=== PATIENT | male | born 1960 | race Two or more races ===

== ENCOUNTER 2022-03-30 08:43 | Day surgery (SDC) | payer OTHER ==
[~2022-03-30] VITALS: Ht 165.1 cm; Wt 88.5 kg
[2022-03-30] MEDS ORDERED: MIDAZOLAM 2 MG/2 ML VIAL ONE (09:43)
[2022-03-30] MEDS ORDERED: LIDOCAINE 2% 100 MG/5 ML UJET TP ONE (09:43)
[2022-03-30] MEDS ORDERED: diphenhydrAMINE 50 MG/ML VIAL ONE (09:43)
[2022-03-30] MEDS ORDERED: fentaNYL citrate 0.05 MG/ML VIAL ONE (09:43)
[2022-03-30] MEDS ORDERED: diphenhydrAMINE 50 MG/ML VIAL IVP ONE (10:50)
[2022-03-30] MEDS ORDERED: MIDAZOLAM 2 MG/2 ML VIAL IVP ONE (10:50)
[2022-03-30] MEDS ORDERED: fentaNYL citrate 0.05 MG/ML VIAL IVP ONE (10:50)
== END 2022-03-30 11:33 | disposition home or self-care (01) ==
LOC: MDS 08:43 → MMU 08:44 → MDS 11:33
PROVIDERS: ATTEND Internal Medicine Gastroenterology
DX: K62.5 Hemorrhage of anus and rectum (principal); K57.30 Diverticulosis of large intestine without perforation or abscess without bleeding; K63.5 Polyp of colon; I10 Essential (primary) hypertension; E11.9 Type 2 diabetes mellitus without complications; F17.210 Nicotine dependence, cigarettes, uncomplicated; Z88.5 Allergy status to narcotic agent; Z79.899 Other long term (current) drug therapy; Z20.822 Contact with and (suspected) exposure to COVID-19
CPT/HCPCS: 45378; 87426; J1200; J2250; J3010